=== PATIENT | male | born 1960 | race Caucasian/White ===

== ENCOUNTER 2017-05-26 11:31 | Day surgery (SDC) | payer MEDICAID ==
[2017-05-26] MEDS ORDERED: ALDACTONE50 MG PO (13:40)
[2017-05-26] MEDS ORDERED: FUROSEMIDE40 MG PO (13:41)
[2017-05-26] MEDS ORDERED: XIFAXAN550 MG PO ×2 (13:41→13:42)
[2017-05-26] MEDS ORDERED: NORCO 7.5/325 T1 TA1 PO (13:43)
[2017-05-26] MEDS ORDERED: TRAZODONE HCL50 MG PO (13:44)
[2017-05-26] MEDS ORDERED: PRINIVIL20 MG PO (13:44)
[2017-05-26 14:01] VITALS: BMI 25.1
[2017-05-26 14:32] LABS: BASOPHILS 0.7 % (0-2); EOSINOPHILS 0.7 % (0-7); HEMATOCRIT 27.7 % (42.0-54.0); HEMOGLOBIN 9.6 g/dL (13.5-17.5); IMMATURE GRANULOCYTES 0.3 % (0-5); LYMPHOCYTES 43.6 % (15-50); MCH 32.1 pg (26.0-34.0); MCHC 34.7 g/dL (31.0-37.0); MCV 92.6 fL (80.0-100.0); PLATELET COUNT 74 10x3/uL (130-400); RBC 2.99 10x6/uL (4.20-6.10); RDW 21.2 % (11.5-14.5); WBC 3.1 10x3/uL (4.8-10.8)
[2017-05-26 14:33] LABS: MEAN PLATELET VOLUME 0 fL (7.4-10.4)
[2017-05-26 14:40] LABS: APTT 40.8 SECONDS (22.8-39.4); INR 1.77 (0.85-1.17); PROTIME 20.6 SECONDS (11.6-15.0)
[2017-05-26 14:47] LABS: ALBUMIN 2.2 g/dL (3.4-5.0); ALKALINE PHOSPHATASE 134 U/L (46-116); ALT (SGPT) 48 U/L (10-68); BILIRUBIN - TOTAL 2.62 mg/dL (0.2-1.3); CALC OSMOLALITY 258 mosm/kg (275-300); CALCIUM 8.7 mg/dL (8.5-10.1); CHLORIDE - SERUM 100 mmol/L (98-107); CREATININE - SERUM 0.8 mg/dL (0.6-1.3); GLUCOSE 84 mg/dL (74-106); POTASSIUM - SERUM 4.1 mmol/L (3.5-5.1); PROTEIN - SERUM 8.1 g/dL (6.4-8.2); SODIUM 130 mmol/L (136-145); UREA NITROGEN 10 mg/dL (7-18); eGFR NON AFRICAN AMERICAN > 90 mL/min (90-120)
[2017-05-26 14:51] LABS: PLATELET ESTIMATE DECREASED
[2017-05-26 14:52] LABS: NEUTROPHILS 39.7 % (40-80)
--- NOTE | 2017-05-26 17:17 | NUR ---
1700 DISCHARGE INSTRUCTIONS GIVEN. FLAGYL GIVEN IV PRIOR TO DC PER ORDERS. NO PRESCRIPTIONS GIVEN. ESCORTED OUT BY KARTIK FARFAN.
--- NOTE | 2017-05-30 16:01 | OP ---
PATIENT NAME: JING FLEMING MEDICAL RECORD: [id number] :56 LOCATION:D[facility] ADMISSION DATE: SURGEON: JS HOLLAND MD DATE OF OPERATION: 05/26/2017 PROCEDURE: Colonoscopy with polypectomy. REFERRING PHYSICIAN: Saba oPpe MD INDICATIONS: Mr. Fleming is a 56-year-old gentleman with a history of cirrhosis secondary to hepatitis C and alcohol use. He was treated. He completed 12 weeks of Epclusa treatment for his hepatitis C with Dr. Staley (genotype 1a). He presents for outpatient screening colonoscopy. PREMEDICATIONS: Total IV anesthesia (ASA 3, end-stage liver disease), propofol 480 mg. INSTRUMENT: Olympus video colonoscope. PROCEDURE AND FINDINGS: After receiving informed consent, Mr. Fleming was placed in left lateral decubitus position and sedated as per anesthesia. After achieving adequate level of sedation, digital rectal exam was performed that showed no external hemorrhoidal tags, fissures, or fistulas; normal sphincter tone; and no palpable rectal masses. The colonoscope was introduced per rectally and advanced to the cecum with mild difficulty. He had a tortuous sigmoid colon with multiple diverticula present. The cecum, IC valve, and appendiceal orifice were identified. There was a copious amount of thick liquid stool and indigestible debris throughout the colon. Multiple lavages were performed. In the proximal ascending colon, was a 0.75-cm sessile polyp removed with hot biopsy forceps technique. A few diverticula were seen in the ascending colon. There was a 0.75-cm sessile polyp noted in the distal transverse colon that was removed with hot biopsy forceps technique. Multiple diverticula were seen in the sigmoid colon. Retroflexion in rectum showed mild internal hemorrhoids. Withdrawal time was 9 minutes. Mr. Fleming tolerated the procedure well. No immediate complications. ASSESSMENT: 1. Transverse colon polyp, status post polypectomy. 2. Proximal ascending colon polyp, status post polypectomy. 3. Zfdi-fh-[id number] pandiverticulosis coli. 4. Internal hemorrhoids. 5. Cirrhosis secondary to hepatitis C and alcohol. RECOMMENDATIONS: 1. Followup histopathology. 2. Avoid aspirin and nonsteroidal anti-inflammatory drugs. 3. Surveillance colonoscopy in 3 years (pending nature of polyp histopathology). TRANSINT:[id number] Voice Confirmation ID: [id number] DOCUMENT ID: [id number] OPERATIVE REPORT [id number] JING FLEMING TERRI MD at 1601 CC: SABA POPE MD [id number] DICTATION DATE: 05/26/17 153 [employer]: 05/26/171999 [facility] 05/26/17 [place] [id number] [place] [id number]
== END 2017-05-26 17:00 | disposition home or self-care (01) ==
LOC: D.OPS 11:31
PROVIDERS: Anesthesiology
DX: Z12.11 Encounter for screening for malignant neoplasm of colon (principal); D12.2 Benign neoplasm of ascending colon; D12.3 Benign neoplasm of transverse colon; K57.30 Diverticulosis of large intestine without perforation or abscess without bleeding; K64.8 Other hemorrhoids; K70.30 Alcoholic cirrhosis of liver without ascites; B18.2 Chronic viral hepatitis C; Z01.812 Encounter for preprocedural laboratory examination

== ENCOUNTER 2017-06-09 09:59 | Day surgery (SDC) | payer MEDICAID ==
[~2017-06-09 09:59] MED LIST: ALDACTONE50 MG PO; FUROSEMIDE40 MG PO; NORCO 7.5/325 T1 TA1 PO; PRINIVIL20 MG PO; TRAZODONE HCL50 MG PO; XIFAXAN550 MG PO
[2017-06-09] MEDS ORDERED: ENULOSE10 G/15 ML PO (10:36)
[2017-06-09] MEDS ORDERED: PROTONIX20 MG PO (10:37)
[2017-06-09 10:38] VITALS: BP 132/54; BMI 25.1
[2017-06-09 12:49] LABS: HEMATOCRIT 29.5 % (42.0-54.0); MCH 33.1 pg (26.0-34.0); MCHC 33.9 g/dL (31.0-37.0); MCV 97.7 fL (80.0-100.0); PLATELET COUNT 80 10x3/uL (130-400); RBC 3.02 10x6/uL (4.20-6.10); RDW 19.6 % (11.5-14.5); WBC 3.9 10x3/uL (4.8-10.8)
[2017-06-09 13:36] LABS: PLATELET ESTIMATE DECREASED
--- NOTE | 2017-06-09 14:16 | NUR ---
1335- PT SITTING UP IN BED WITH HOB ELEVATED. VERBALIZING NEEDS AND ANSWERING QUESTIONS APPROPRIATELY. 1400- TOLERATED FULL LIQUIDS AND HAD VOIDED WITHOUT DIFFICUTLY. IV D/C'D, CATHETER INTACT. 1405- LEFT VOICEMAIL FOR SISTER TO COME PICK HIM UP. WILL AWAIT RIDE HOME. 1415- DISCHARGE INSTRUCTIONS COMPLETED. PAPERWORK SIGNED. PT VERBALIZERS UNDERSTANDING.
--- NOTE | 2017-06-09 14:24 | NUR ---
1420- PT DISCHARGED VIA WHEELCHAIR.
--- NOTE | 2017-06-13 18:22 | OP ---
PATIENT NAME: JING FLEMING MEDICAL RECORD: [id number] :56 [facility] DATE: SURGEON: JS HOLLAND MD DATE OF OPERATION: 06/09/2017 PROCEDURE: EGD with biopsy. REFERRING PHYSICIAN: Saba Pope MD. INDICATIONS: Mr. Fleming is a 56-year-old gentleman with a history of end-stage liver disease secondary to hepatitis C and alcohol use, status post 12-week treatment of Epclusa for hepatitis C with Dr. Staley (genotype 1A). He was admitted to the hospital in January 2017 secondary to hematemesis and acute anemia secondary to GI bleeding. He had an EGD performed that showed superficial gastric ulcer, grade III esophageal varices with spot stigmata of recent bleeding status post banding, reflux induced esophagitis, gastropathy of portal hypertension, and duodenopathy. He has been taking propranolol 10 mg t.i.d. for prevention of variceal bleeding. He takes Protonix 20 mg daily. He presents for outpatient followup EGD. PREMEDICATIONS: Total IV anesthesia (ASA 4), propofol 220 mg. INSTRUMENT: Olympus video gastroscope. PROCEDURE AND FINDINGS: After receiving informed consent, Mr. Fleming's posterior pharynx was anesthetized with Cetacaine spray, was placed in left lateral decubitus position, sedated as per anesthesia. After achieving an adequate level of sedation, gastroscope was introduced per orally and advanced to the duodenum without difficulty. The esophageal mucosa was without erythema or ulcers. The varices were less pronounced and were approximately grade I to II flattening with insufflation. There was no stigmata of recent bleeding noted on any of the varices. The varices extend to the mid esophagus. A small hiatal hernia was noted. Gastric mucosa was notable for reticulated pattern in the cardia, fundus, and body of the stomach consistent with gastropathy of portal hypertension. A few antral and prepyloric erosions were noted, but the ulcers had healed. Pylorus was patent and competent. Duodenal mucosa was without erythema or ulcers, appeared normal through the second portion. Gastroscope was then withdrawn. Mr. Fleming tolerated the procedure well, no immediate complications. ASSESSMENT: 1. Grade I to II esophageal varices and no signs of recent bleeding, status post banding in the past. 2. Small hiatal hernia. 3. Gastropathy of portal hypertension. 4. Mild erosive gastritis. 5. Healed gastric ulcers. RECOMMENDATIONS: 1. Follow up histopathology. 2. Avoid nonsteroidal anti-inflammatory drugs. 3. Continue Protonix 20 mg daily. 4. Propranolol 10 mg t.i.d. TRANSINT:[id number] Voice Confirmation ID: [id number] DOCUMENT ID: [id number] OPERATIVE REPORT [id number] JING FLEMING TERRI MD at 1822 CC: SABA POPE MD [id number] DICTATION DATE: 06/09/17 1336 [employer]: 06/09/17 1351 [facility] 06/09/17 [facility] [address] [place] [address]
== END 2017-06-09 14:20 | disposition home or self-care (01) ==
LOC: D.OPS 09:59
PROVIDERS: Anesthesiology
DX: I85.10 Secondary esophageal varices without bleeding (principal); B19.20 Unspecified viral hepatitis C without hepatic coma; K74.60 Unspecified cirrhosis of liver; F17.200 Nicotine dependence, unspecified, uncomplicated; Z01.812 Encounter for preprocedural laboratory examination; K44.9 Diaphragmatic hernia without obstruction or gangrene; K29.70 Gastritis, unspecified, without bleeding; K76.6 Portal hypertension; K31.89 Other diseases of stomach and duodenum

== ENCOUNTER 2017-12-22 12:10 | Emergency (ER) | payer MEDICAID ==
[~2017-12-22 12:10] MED LIST changes: +ENULOSE10 G/15 ML PO; +PROTONIX20 MG PO
[2017-12-22 15:11] LABS: BASOPHILS 0.4 % (0-2); EOSINOPHILS 2.5 % (0-7); HEMATOCRIT 30.9 % (42.0-54.0); IMMATURE GRANULOCYTES 0.2 % (0-5); LYMPHOCYTES 15.2 % (15-50); MCH 37.2 pg (26.0-34.0); MCHC 35.6 g/dL (31.0-37.0); MCV 104.4 fL (80.0-100.0); MONOCYTES 17.9 % (2-11); NEUTROPHILS 63.8 % (40-80); PLATELET COUNT 73 10x3/uL (130-400); RBC 2.96 10x6/uL (4.20-6.10); WBC 5.3 10x3/uL (4.8-10.8)
[2017-12-22 15:28] LABS: ALBUMIN 2.3 g/dL (3.4-5.0); ANION GAP 10.4 mmol/L (8-16); CARBON DIOXIDE 23.1 mmol/L (21.0-32.0); CREATININE - SERUM 1.2 mg/dL (0.6-1.3); POTASSIUM - SERUM 4.5 mmol/L (3.5-5.1); PROTEIN - SERUM 9.6 g/dL (6.4-8.2)
[2017-12-22 15:55] LABS: PLATELET ESTIMATE DECREASED
== END 2017-12-22 17:40 | disposition home or self-care (01) ==
LOC: D.ER 12:10
PROVIDERS: Physician Assistant Medical
DX: E87.1 Hypo-osmolality and hyponatremia (principal); E86.0 Dehydration; F17.200 Nicotine dependence, unspecified, uncomplicated

== ENCOUNTER 2018-03-07 13:18 | Inpatient (IN) | payer MEDICAID ==
[~2018-03-07] VITALS: Ht 170.2 cm; Wt 82.5 kg
--- NOTE | ~2018-03-07 | HEMODYNAMI ---
PATIENT:JING TAN MEDICAL RECORD: [id number] : 56 LOCATION:[place] [address] ADMISSION DATE: 03/07/18 Generatedon:03/09/201811:44 Patient name: JING TAN Patient #: [id number] SSN: DO B: 1960 Date of study: 03/09/2018 Page: Of Hemodynamic Procedure Report Patient Data Patient Demographics Procedure consent was obtained First Name: JING Gender: Male Last Name: BRITNEY : 1960 Middle Initial: KOLTON Age: 57 year(s) Patient #: [id number] Race: Unknown Additional ID: [id number] Contact details [address]: [address] [place] [address] State: [place] City: [place] Zip code: [address] Admission Admission Data Admission Date: 03/07/2018 Admission Time: 18:44 Room #: [facility] Procedure Procedure Types Cath Procedure Peripheral Cath Diagnostic Procedure Miscellaneous PARACENTESIS WITH GUIDE Procedure Description Procedure Date Procedure Date: 03/09/2018 Procedure Start Time: 10:45 Procedure Staff Name Function George Lopez MD Performing Physician Russ Jones RT Monitor Esperanza Soto RN Nurse Procedure Medications Medication Administration Route Dosage Fentanyl I.V. 50 mcg Versed I.V. 1 mg Fentanyl I.V. 50 mcg Versed I.V. 1 mg unlisted medication 25 Hemodynamics Rest Heart Rate: 83 (bpm) Snapshots Pre Cath Intra NCS Post Cath Vital Signs Time Heart Resp SPO2 etCO2 NIBP (mmHg) Rhythm Pain Sedation Rate (ipm) (%) (mmHg) Status Level (bpm) 10:37:56 83 12 94 0 129/69(107) NSR 0 (11) 10(A) , No pain 10:42:12 78 0 95 28.5 118/71(113) NSR 0 (11) 10(A) , No pain 10:46:22 79 12 98 2.2 118/71(92) NSR 0 (11) 10(A) , No pain 10:50:33 75 28 93 0 105/64(85) NSR 0 (11) 10(A) , No pain 10:54:39 86 1 93 10.5 116/71(90) NSR 0 (11) 10(A) , No pain 10:58:49 86 3 97 9 119/68(89) NSR 0 (11) 10(A) , No pain 11:03:01 85 4 98 10.5 110/66(90) NSR 0 (11) 10(A) , No pain 11:07:09 87 2 98 14.2 119/63(84) NSR 0 (11) 10(A) , No pain 11:11:23 84 4 99 14.2 114/61(85) NSR 0 (11) 10(A) , No pain 11:15:33 86 3 99 17.2 115/65(87) NSR 0 (11) 10(A) , No pain 11:19:51 86 5 100 26.2 128/48(77) NSR 0 (11) 10(A) , No pain 11:24:05 90 5 98 23.2 114/79(95) NSR 0 (11) 10(A) , No pain 11:28:15 87 5 99 5.2 122/67(95) NSR 0 (11) 10(A) , No pain 11:32:27 87 0 100 25.5 122/69(90) NSR 0 (11) 10(A) , No pain 11:36:37 88 11 100 18.7 124/74(96) NSR 0 (11) 10(A) , No pain 11:40:51 88 6 100 17.2 135/62(94) NSR 0 (11) 10(A) , No pain Medications Time Medication Route Dose Verified Delivered Reason Notes Effectiven ess by by 10:48:22 Fentanyl I.V. 50 George Mata for mcg John Soto RN sedation 10:48:33 Versed I.V. 1 mg George Mata for John Soto RN sedation 10:59:12 Fentanyl I.V. 50 George Mata for mcg John Soto RN sedation 10:59:20 Versed I.V. 1 mg George Walkerody for John Soto RN sedation 11:36:07 ALBUMIN IV 25GMS George Mata used for John Soto RN procedure MD Procedure Log Time Note 10:29:18 Russ Robert RT (R) (CV) sent for patient. Start room use. 10:29:31 Time tracking: Regular hours (M-F 7:00 - 5:00) 10:29:36 Plan of Care:Hemodynamics will remain stable., Cardiac rhythm will remain stable., Comfort level will be maintained., Respiratory function will remain adequate., Patient/ family verbilizes understanding of procedure., Procedure tolerated without complication., Recovers from procedure without complications.. 10:29:51 Patient arrived from Med II to IR. Patient remains on bed/stretcher for procedure. 10:29:53 Correct patient and procedure confirmed by team. 10:29:55 Signed procedure consent form obtained from patient. 10:29:56 ECG and BP/O2 sat monitors applied to patient. 10:29:59 Full Disclosure recording started 10:29:59 - 10:30:05 H&P Date Dictated: 03/09/2018 Within 30 days and on chart.. 10:30:06 Pre-procedure instructions explained to patient. 10:30:06 Pre-op teaching completed and patient verbalized understanding. 10:30:08 Family unavailable. 10:30:11 Patient NPO since Midnight. 10:30:16 Is the patient allergic to Iodine/contrast media? No. 10:30:18 Is patient on blood thinner?No 10:30:21 Is patient on blood thinner?No 10:30:23 - 10:31:19 Patient diabetic? No. 10:31:20 ----Pre-sedation anethsthesia assessment.---- 10:31:23 Previous problem with sedation/anesthesia? No ? 10:31:24 Snore? No 10:31:26 Sleep apnea? No 10:31:27 Deviated septum? No 10:31:28 Opens mouth fully? Yes 10:31:29 Sticks out tongue? Yes 10:31:31 Airway obstruction? No ? 10:31:35 Dentures? Yes out 10:31:39 - 10:31:41 Alarms reviewed by Rosalina Mcknight. 10:31:41 Sharps counted by scrub and verified by RAryanN. 10:31:52 Right abdomen area was prepped with chlora-prep and draped in sterile fashion 10:31:58 Patient pain scale 0/10 no. 10:32:06 IV patent on arrival in right forearm with 0.9% NaCl at O. 10:35:10 [id number] 8FR CATH DRAIN TRAY opened to sterile field. 10:36:49 Vital chart was started 10:41:30 Baseline sample Acquired. 10:44:03 Physician arrived 10:44:04 --------ALL STOP TIME OUT------ 10:44:12 Final Timeout: patient, procedure, and site verified with staff and physician. All members of the team are in agreement. 10:44:16 Right abdomen site verified by team. 10:44:21 Sedation plan: IV Moderate Sedation Medication:Versed, Fentanyl 10:45:05 Procedure started. 10:45:45 Local anesthetic toRIGHT Abdominal area with Lidocaine 1% by George Lopez MD.INITIAL ACCESS ONLY 10:46:44 CONNECTING TUBE FOR DRAINAGE BAG ([id number]) opened to sterile field. 10:48:22 Fentanyl 50 mcg I.V. was administered by Esperanza Soto RN; for sedation ; 10:48:33 Versed 1 mg I.V. was administered by Esperanza Soto RN; for sedation; 10:49:53 Access obtained with 8FR PARACENTESIS CATH. 10:59:12 Fentanyl 50 mcg I.V. was administered by Esperanza Soto RN; for sedation ; 10:59:20 Versed 1 mg I.V. was administered by Esperanza Soto RN; for sedation; 11:36:07 ALBUMIN 25GMS IV was administered by Esperanza Soto RN; used for procedure; 11:36:16 Procedure ended.(Physican Out) 11:37:24 Dermabond Pen opened to sterile field. 11:37:35 8.4 LITERS DRAINED 11:37:37 Sharps counted by scrub and verified by R.N. 11:38:13 Post-op/insertion site Right Abdominal area dressed using a 4 x 4 and Tegaderm. 11:38:22 Post Abdominal area:stable 11:40:41 Procedure and supply charges have been captured, reviewed, submitted an d are correct. 11:43:43 Report given to [facility]. 11:43:50 Patient transfered to [facility] with Bed. 11:44:25 Vital chart was stopped Device Usage Item Name Manufacture Quantity Catalog Hospital Part Current Mini mal Lot# / Number Charge Number Stock Stock Serial# Code CONNECTING TUBE [place] 1 [id number] FOR DRAINAGE Scientific BAG ([id number]) [id number]-T-LOWKOTST [employer] 1 [id number] 8FR CATH DRAIN TRAY Dermabond Pen Ethicon 1 [id number] Signature Audit Romayor Stage Time Signature Unsigned Intra-Procedure 03/09/2018 Russ 11:44:22 AM Robert RT (R) (CV) Signatures Monitor : Russ Signature : Robert RT Date : Time : [facility] [address] [place] [id number]
[2018-03-07] MEDS ORDERED: ENULOSE10 G/15 ML (13:35)
[2018-03-07] MEDS ORDERED: SUPER B COMPLE150 MG PO (13:35)
[2018-03-07] MEDS ORDERED: TRAZODONE HCL50 MG PO (13:36)
[2018-03-07] MEDS ORDERED: ACETAMINOPHEN325 MG PO (13:37)
[2018-03-07] MEDS ORDERED: FOLATE0.4 MG PO (13:37)
[2018-03-07] MEDS ORDERED: FISH OIL 1,2001 CAP PO (13:38)
[2018-03-07] MEDS ORDERED: INDERAL10 MG PO (13:39)
[2018-03-07 14:22] LABS: BASOPHILS 0.2 % (0-2); EOSINOPHILS 1.6 % (0-7); HEMATOCRIT 31.4 % (42.0-54.0); HEMOGLOBIN 10.6 g/dL (13.5-17.5); IMMATURE GRANULOCYTES 0.8 % (0-5); MCH 36.6 pg (26.0-34.0); MCHC 33.8 g/dL (31.0-37.0); MCV 108.3 fL (80.0-100.0); MEAN PLATELET VOLUME 11.2 fL (7.4-10.4); MONOCYTES 15.1 % (2-11); NEUTROPHILS 74.3 % (40-80); PLATELET COUNT 51 10x3/uL (130-400); RDW 17.5 % (11.5-14.5); WBC 4.9 10x3/uL (4.8-10.8)
[2018-03-07 14:36] LABS: ALBUMIN 1.7 g/dL (3.4-5.0); ALKALINE PHOSPHATASE 92 U/L (46-116); ALT (SGPT) 37 U/L (10-68); BILIRUBIN - TOTAL 4.55 mg/dL (0.2-1.3); CALC OSMOLALITY 267 mosm/kg (275-300); CARBON DIOXIDE 27.5 mmol/L (21.0-32.0); CHLORIDE - SERUM 103 mmol/L (98-107); GLUCOSE 126 mg/dL (74-106); POTASSIUM - SERUM 4.1 mmol/L (3.5-5.1); PROTEIN - SERUM 7.9 g/dL (6.4-8.2); SODIUM 132 mmol/L (136-145); UREA NITROGEN 16 mg/dL (7-18); eGFR NON AFRICAN AMERICAN 81 mL/min (90-120)
[2018-03-07 14:41] LABS: PLATELET ESTIMATE DECREASED
[2018-03-07 14:43] LABS: AMYLASE - SERUM 69 U/L (25-115); LIPASE 374 U/L (73-393); PRO BNP 185 pg/mL (0-125)
[2018-03-07 19:30] VITALS: BP 134/99
[2018-03-07 20:30] VITALS: BP 134/63
[2018-03-07 21:30] VITALS: BP 115/53
[2018-03-07 23:12] VITALS: BP 108/52
[2018-03-08 01:10] VITALS: BP 142/61
[2018-03-08 05:20] VITALS: BP 112/79
[2018-03-08 06:38] LABS: BASOPHILS 0.2 % (0-2); EOSINOPHILS 4.7 % (0-7); HEMATOCRIT 30.9 % (42.0-54.0); HEMOGLOBIN 10.6 g/dL (13.5-17.5); IMMATURE GRANULOCYTES 0.4 % (0-5); LYMPHOCYTES 18.9 % (15-50); MCH 37.9 pg (26.0-34.0); MCHC 34.3 g/dL (31.0-37.0); MEAN PLATELET VOLUME 10.6 fL (7.4-10.4); MONOCYTES 16.8 % (2-11); RDW 17.7 % (11.5-14.5); WBC 4.7 10x3/uL (4.8-10.8)
[2018-03-08 06:41] VITALS: BP 142/61; BMI 27.9
[2018-03-08 06:57] LABS: MCV 110.4 fL (80.0-100.0)
[2018-03-08 06:59] LABS: PLATELET COUNT 44 10x3/uL (130-400)
[2018-03-08 07:16] LABS: INR 2.09 (0.85-1.17); PROTIME 22.9 SECONDS (11.6-15.0)
[2018-03-08 07:28] LABS: ALBUMIN 1.5 g/dL (3.4-5.0); ANION GAP 5.4 mmol/L (8-16); BILIRUBIN - TOTAL 4.22 mg/dL (0.2-1.3); CALCIUM 7.9 mg/dL (8.5-10.1); CARBON DIOXIDE 27.5 mmol/L (21.0-32.0); CREATININE - SERUM 1.2 mg/dL (0.6-1.3); POTASSIUM - SERUM 3.9 mmol/L (3.5-5.1); PROTEIN - SERUM 7.3 g/dL (6.4-8.2)
[2018-03-08 08:15] VITALS: BP 94/56
[2018-03-08 13:12] VITALS: BMI 27.9
[2018-03-08 15:56] VITALS: BP 135/82
[2018-03-08 20:02] VITALS: Ht 170.2 cm; Wt 82.5 kg
[2018-03-08 21:52] VITALS: BP 131/80
[2018-03-09] VITALS (13 sets, daily range): BP systolic 96–132; BP diastolic 49–84
[2018-03-09 06:04] LABS: BASOPHILS 0.4 % (0-2); EOSINOPHILS 5.1 % (0-7); HEMATOCRIT 26.4 % (42.0-54.0); HEMOGLOBIN 8.7 g/dL (13.5-17.5); IMMATURE GRANULOCYTES 0.9 % (0-5); LYMPHOCYTES 18.7 % (15-50); MCH 36.7 pg (26.0-34.0); MCV 111.4 fL (80.0-100.0); MEAN PLATELET VOLUME 12.2 fL (7.4-10.4); MONOCYTES 23.8 % (2-11); NEUTROPHILS 51.1 % (40-80); RBC 2.37 10x6/uL (4.20-6.10); RDW 18.3 % (11.5-14.5); WBC 4.5 10x3/uL (4.8-10.8)
[2018-03-09 06:14] LABS: PLATELET COUNT 56 10x3/uL (130-400)
[2018-03-09 06:20] LABS: ANION GAP 6.1 mmol/L (8-16); BILIRUBIN - TOTAL 3.86 mg/dL (0.2-1.3); CALCIUM 8.1 mg/dL (8.5-10.1); CREATININE - SERUM 1.2 mg/dL (0.6-1.3); POTASSIUM - SERUM 4.1 mmol/L (3.5-5.1); PROTEIN - SERUM 7.3 g/dL (6.4-8.2)
[2018-03-09 06:24] LABS: ALBUMIN 1.9 g/dL (3.4-5.0)
[2018-03-09 07:01] LABS: APTT 43.2 SECONDS (22.8-39.4); INR 1.87 (0.85-1.17)
[2018-03-09 12:07] LABS: PROTEIN - BODY FLUID 0.8 G/DL
[2018-03-09 14:45] LABS: MACROPHAGES BF 52 %; MESOTHELIALS BF 7 %; NEUT - BF 19 %
[2018-03-10 01:30] VITALS: BP 99/74
[2018-03-10 06:03] VITALS: BP 109/61
[2018-03-10 06:44] LABS: BASOPHILS 0.4 % (0-2); EOSINOPHILS 2.5 % (0-7); HEMATOCRIT 26.3 % (42.0-54.0); HEMOGLOBIN 8.8 g/dL (13.5-17.5); LYMPHOCYTES 9.8 % (15-50); MCH 36.5 pg (26.0-34.0); MCHC 33.5 g/dL (31.0-37.0); MEAN PLATELET VOLUME 10.8 fL (7.4-10.4); MONOCYTES 18.7 % (2-11); NEUTROPHILS 67.6 % (40-80); RBC 2.41 10x6/uL (4.20-6.10); RDW 17.7 % (11.5-14.5); WBC 4.8 10x3/uL (4.8-10.8)
[2018-03-10 06:47] LABS: MCV 109.1 fL (80.0-100.0)
[2018-03-10 06:52] LABS: ALBUMIN 1.9 g/dL (3.4-5.0); ALKALINE PHOSPHATASE 75 U/L (46-116); ALT (SGPT) 23 U/L (10-68); BILIRUBIN - TOTAL 3.66 mg/dL (0.2-1.3); CALC OSMOLALITY 268 mosm/kg (275-300); CALCIUM 7.9 mg/dL (8.5-10.1); CARBON DIOXIDE 25.7 mmol/L (21.0-32.0); CHLORIDE - SERUM 103 mmol/L (98-107); CREATININE - SERUM 0.9 mg/dL (0.6-1.3); GLUCOSE 98 mg/dL (74-106); PLATELET COUNT 49 10x3/uL (130-400); POTASSIUM - SERUM 3.9 mmol/L (3.5-5.1); PROTEIN - SERUM 6.4 g/dL (6.4-8.2); SODIUM 134 mmol/L (136-145); UREA NITROGEN 15 mg/dL (7-18); eGFR NON AFRICAN AMERICAN > 90 mL/min (90-120)
[2018-03-10 08:26] VITALS: BP 116/62
[2018-03-10 12:27] VITALS: BP 114/67
[2018-03-10] MEDS ORDERED: ALDACTONE25 MG PO (14:28)
[2018-03-10] MEDS ORDERED: LASIX40 MG PO (14:31)
[2018-03-10 16:40] VITALS: BP 100/47
== END 2018-03-10 18:13 | disposition home health service (06) | DRG 432 ==
LOC: D.ER 13:18 → D.EDHOLD 18:44 → D.M2 18:44
PROVIDERS: Family Medicine; Internal Medicine Gastroenterology; Radiology Diagnostic Radiology
PROC: 0W9G3ZZ Drainage of Peritoneal Cavity, Percutaneous Approach (ICD-10-PCS; principal; 2018-03-09 10:29)
DX: K70.31 Alcoholic cirrhosis of liver with ascites (principal); E43 Unspecified severe protein-calorie malnutrition; D61.818 Other pancytopenia; Z68.27 Body mass index [BMI] 27.0-27.9, adult